=== PATIENT | male | born 1950 | race Caucasian/White ===

== ENCOUNTER 2023-02-13 07:37 | Observation (INO) | payer MEDICARE ==
[~2023-02-13] VITALS: Ht 172.7 cm; Wt 77.1 kg
[~2023-02-13 07:37] MED LIST: ATOR80TA59 PO; BSS IRR 500ML/OMIDRIA 4ML IRR BAG (OR ONLY) As Ordered ONE; CEFUROXIME 1MG/0.1ML INTRACAMERAL INJ As Ordered ONE; FENO145T7 PO; LIDOCAINE 1% SDV 5ML VIAL As Ordered ONE; MIRT1TAB16 PO; PROPARACAINE 0.5% OPHTH SOL 15ML OD ONE
[2023-02-13] MEDS ORDERED: ONDANSETRON 4MG 2ML VIAL IV PRN (09:30)
[2023-02-13] MEDS: hydrALAZINE 20MG/ML 1ML VIAL IV PRN ×4 (09:32→09:47)
[2023-02-13] MEDS ORDERED: MAALOX 30 ML SUSP *UDC PO PRN (11:25)
[2023-02-13] MEDS ORDERED: ACETAMINOPHEN TAB 650MG DOSE (2X325MG) PO PRN (11:25)
[2023-02-13] MEDS ORDERED: MOM 30ML SUSPENSION UDC PO PRN (11:25)
[2023-02-13] MEDS ORDERED: CEFUROXIME 1MG/0.1ML INTRACAMERAL INJ As Ordered ONE (11:31)
[2023-02-13] MEDS ORDERED: LIDOCAINE 1% SDV 5ML VIAL As Ordered ONE (11:31)
[2023-02-13] MEDS ORDERED: hydrALAZINE 20MG/ML 1ML VIAL IV PRN ×2 (12:00→15:40)
[2023-02-13 12:07] LABS: HEMATOCRIT 45.6 % (42.0-52.0); HEMOGLOBIN 14.7 g/dl (13.5-17.5); MEAN CORPUSCULAR HEMOGLOBIN 28.5 pg (27.0-33.0); MEAN CORPUSCULAR HGB CONC 32.2 g/dl (32.0-36.5); MEAN CORPUSCULAR VOLUME 88.4 fl (80.0-96.0); PLATELET COUNT, AUTOMATED 247 10^3/uL (150-450); RED BLOOD COUNT 5.16 10^6/uL (4.30-6.10); WHITE BLOOD COUNT 4.2 10^3/uL (4.0-10.0)
[2023-02-13 12:33] LABS: ALBUMIN 3.7 G/DL (3.2-5.2); ALKALINE PHOSPHATASE 88 U/L (46-116); ALT/SGPT 57 U/L (7.0-40); AST/SGOT 53 U/L (<34); BILIRUBIN,TOTAL 0.6 MG/DL (0.3-1.2); BLOOD UREA NITROGEN 20 MG/DL (9-23); CALCIUM LEVEL 9.4 MG/DL (8.3-10.6); CARBON DIOXIDE LEVEL 25 MMOL/L (20-31); CHLORIDE LEVEL 107 MMOL/L (98-107); GLOMERULAR FILTRATION RATE > 60.0 (>42); GLUCOSE, FASTING 97 MG/DL (74-106); POTASSIUM SERUM 4.5 MMOL/L (3.5-5.1); SODIUM LEVEL 141 MMOL/L (136-145)
[2023-02-13] MEDS: CYCLOPENTOLATE 1% OPHTH SOLN 2ML BTL OD SCH ×2 (12:39→15:10)
[2023-02-13] MEDS: PHENYLEPHRINE 2.5% OPHTH SOL 2ML OD SCH ×2 (12:39→15:10)
[2023-02-13] MEDS: OFLOXACIN 0.3 % (OCUFLOX) OPTH SOL 5ML OD SCH ×2 (12:40→15:11)
[2023-02-13] MEDS: TROPICAMIDE 1% OPHTH SOLN 15ML OD SCH ×2 (12:40→15:11)
[2023-02-13] MEDS ORDERED: fentaNYL 100 MCG/2 ML INJECTION As Ordered ONE (13:34)
[2023-02-13] MEDS ORDERED: MIDAZOLAM INJ 2MG/2ML VIAL As Ordered ONE (13:34)
[2023-02-13 15:04] VITALS: BP 188/88; TEMP 98.8; O2SAT 98
[2023-02-13 15:36] VITALS: BP 160/92; TEMP 98.6; O2SAT 99
[2023-02-13] MEDS ORDERED: KETO0.5S4 OD (17:40)
[2023-02-13] MEDS ORDERED: CIPR0.3S37 OD (17:40)
[2023-02-13] MEDS ORDERED: PREDOPD OD (17:40)
[2023-02-13 19:43] VITALS: BP 164/82; TEMP 98.8; O2SAT 97
[2023-02-13] MEDS ORDERED: ASPIRIN 81MG CHEW TABLET PO ONE (20:00)
[2023-02-13 23:43] VITALS: BP 120/59; TEMP 97.6; O2SAT 94
[2023-02-14] VITALS (8 sets, daily range): BP systolic 120–188; BP diastolic 59–88; TEMP 97.3–98.8; O2SAT 94–98
[2023-02-14] MEDS: KETOROLAC 0.5% OPHTH SOLN OD SCH ×5 (00:10→20:38)
[2023-02-14] MEDS: prednisoLONE ACET 1% OPHTH SUSP 5ML OD SCH ×5 (00:10→20:38)
[2023-02-14] MEDS: POLYTRIM OPTH DROPS 10ML OD SCH ×5 (00:10→20:38)
[2023-02-14 06:57] LABS: BASO % 0.8 % (0.0-1.0); EOS % 0.8 % (0.0-3.0); HEMATOCRIT 39.3 % (42.0-52.0); HEMOGLOBIN 13.2 g/dl (13.5-17.5); LYMPH # 1.1 10^3/uL (1.5-5.0); LYMPH % 21.3 % (24.0-44.0); MEAN CORPUSCULAR HEMOGLOBIN 29.1 pg (27.0-33.0); MEAN CORPUSCULAR HGB CONC 33.6 g/dl (32.0-36.5); MEAN CORPUSCULAR VOLUME 86.6 fl (80.0-96.0); MONO # 1.1 10^3/uL (0.0-0.8); MONO % 22.2 % (2.0-8.0); NEUTROPHILS # 2.7 10^3/uL (1.5-8.5); NEUTROPHILS % 54.1 % (36.0-66.0); PLATELET COUNT, AUTOMATED 243 10^3/uL (150-450); RED BLOOD COUNT 4.54 10^6/uL (4.30-6.10); WHITE BLOOD COUNT 4.9 10^3/uL (4.0-10.0)
[2023-02-14 07:22] LABS: BLOOD UREA NITROGEN 22 MG/DL (9-23); CALCIUM LEVEL 8.6 MG/DL (8.3-10.6); CARBON DIOXIDE LEVEL 23 MMOL/L (20-31); CHLORIDE LEVEL 106 MMOL/L (98-107); CREATININE FOR GFR 1.05 MG/DL (0.70-1.30); GLOMERULAR FILTRATION RATE > 60.0 (>42); GLUCOSE, FASTING 93 MG/DL (74-106); MAGNESIUM LEVEL 1.5 MG/DL (1.8-2.4); POTASSIUM SERUM 4.1 MMOL/L (3.5-5.1); SODIUM LEVEL 139 MMOL/L (136-145)
[2023-02-14] MEDS: ASPIRIN 81MG ENTERIC TABLET PO SCH (08:41)
[2023-02-14] MEDS: ATORVASTATIN 20 MG TAB PO SCH (08:41)
[2023-02-14] MEDS: MAG SULF 1GM/100ML (MAG RUN) 1 GM in IV 1 EA IV SCH ×2 (10:06→11:12)
[2023-02-14] MEDS: HEPARIN SOD (PORCINE) 5000UNITS/ML 1ML VIAL/SYRINGE SC SCH (21:14)
[2023-02-15 03:12] VITALS: BP_SYST 148; BP_SYST 150; BP_DIAS 68; BP_DIAS 70; TEMP 98.1; O2SAT 95
[2023-02-15 04:23] LABS: HEMATOCRIT 39.7 % (42.0-52.0); MEAN CORPUSCULAR HEMOGLOBIN 28.9 pg (27.0-33.0); MEAN CORPUSCULAR HGB CONC 32.7 g/dl (32.0-36.5); MEAN CORPUSCULAR VOLUME 88.2 fl (80.0-96.0); PLATELET COUNT, AUTOMATED 226 10^3/uL (150-450); WHITE BLOOD COUNT 4.4 10^3/uL (4.0-10.0)
[2023-02-15 04:44] LABS: BLOOD UREA NITROGEN 28 MG/DL (9-23); CALCIUM LEVEL 8.5 MG/DL (8.3-10.6); CARBON DIOXIDE LEVEL 25 MMOL/L (20-31); CHLORIDE LEVEL 108 MMOL/L (98-107); CREATININE FOR GFR 1.04 MG/DL (0.70-1.30); GLOMERULAR FILTRATION RATE > 60.0 (>42); GLUCOSE, FASTING 117 MG/DL (74-106); MAGNESIUM LEVEL 1.8 MG/DL (1.8-2.4); POTASSIUM SERUM 3.9 MMOL/L (3.5-5.1); SODIUM LEVEL 140 MMOL/L (136-145)
[2023-02-15 05:02] LABS: ATYPICAL LYMPH 6 % (0-5); BASOPHILS 1 % (0-1); EOSINOPHILS 3 % (0-3); LYMPHOCYTES 31 % (16-44); MONOCYTES 11 % (0-5); NEUTROPHILS 47 % (28-66)
[2023-02-15 05:03] LABS: PLATELET ESTIMATE NORMAL (NORMAL)
[2023-02-15] MEDS: HEPARIN SOD (PORCINE) 5000UNITS/ML 1ML VIAL/SYRINGE SC SCH (05:04)
[2023-02-15 07:24] VITALS: BP 143/63; TEMP 97.6; O2SAT 96
[2023-02-15 08:30] VITALS: BP 140/70
[2023-02-15] MEDS: ASPIRIN 81MG ENTERIC TABLET PO SCH (08:30)
[2023-02-15] MEDS: ATORVASTATIN 20 MG TAB PO SCH (08:30)
[2023-02-15] MEDS: POLYTRIM OPTH DROPS 10ML OD SCH (08:31)
[2023-02-15] MEDS: KETOROLAC 0.5% OPHTH SOLN OD SCH (08:31)
[2023-02-15] MEDS: prednisoLONE ACET 1% OPHTH SUSP 5ML OD SCH (08:31)
[2023-02-15] MEDS ORDERED: ASPI81TAEC PO (11:04)
[2023-02-15] MEDS ORDERED: AMLO1TAB25 PO (11:04)
[2023-02-15] MEDS ORDERED: LISI10TA22 PO (11:04)
[2023-02-15 11:28] VITALS: BP 147/62; TEMP 97.3; O2SAT 98
== END 2023-02-15 12:25 | disposition home or self-care (01) ==
LOC: M SDC 07:37 → M PCU 07:38
PROVIDERS: ADMIT Student in an Organized Health Care Education/Training Program; ATTEND Student in an Organized Health Care Education/Training Program
DX: H25.11 Age-related nuclear cataract, right eye (principal); I16.0 Hypertensive urgency; R74.8 Abnormal levels of other serum enzymes; D64.9 Anemia, unspecified; I69.354 Hemiplegia and hemiparesis following cerebral infarction affecting left non-dominant side; E78.5 Hyperlipidemia, unspecified; F03.90 Unspecified dementia, unspecified severity, without behavioral disturbance, psychotic disturbance, mood disturbance, and anxiety; Z79.899 Other long term (current) drug therapy; Z79.82 Long term (current) use of aspirin
CPT/HCPCS: 36415; 66984; 71046; 80048; 80053; 83735; 84484; 85025; 85027; 93005; 93306; 93930; 96365; 96366; 96372; G0378; J0360; J0697; J2250; J3010; J3475